=== PATIENT | female | born 1955 | race African-American/Black ===

== ENCOUNTER 2022-10-07 10:26 | Emergency (ER) | payer OTHER ==
[~2022-10-07] VITALS: Ht 167.6 cm; Wt 77.0 kg
[2022-10-07] MEDS ORDERED: MORPHINE SULFATE 4 MG/ML CPJ (NOT FOR IM USE) IV ONE (10:45)
[2022-10-07] MEDS ORDERED: ACETAMINOPHEN WITH CODEINE 300/30MG TABLET PO ONE (10:45)
[2022-10-07] MEDS ORDERED: KETAMINE HCL 50 MG/ML 10ML IV ONE (11:30)
[2022-10-07] MEDS ORDERED: PROPOFOL 200MG/20ML VIAL IV ONE (11:30)
[2022-10-07] MEDS ORDERED: T3 PO (11:42)
[2022-10-07] MEDS ORDERED: IBUP-2028 PO (11:42)
[2022-10-07 11:59] VITALS: O2SAT 100
[2022-10-07 13:47] VITALS: BP 156/82; PULSE 80; RESP 21; TEMP 98.3
== END 2022-10-07 13:47 | disposition home or self-care (01) ==
LOC: ER 10:40
DX: S82.301A Unspecified fracture of lower end of right tibia, initial encounter for closed fracture (principal); S82.831A Other fracture of upper and lower end of right fibula, initial encounter for closed fracture; Z79.899 Other long term (current) drug therapy; X50.1XXA Overexertion from prolonged static or awkward postures, initial encounter; Y93.89 Activity, other specified; Y92.89 Other specified places as the place of occurrence of the external cause; Y99.8 Other external cause status
CPT/HCPCS: 71045; 73590; 73600; 27788; 96374; 99285; J3490; J2704; J2270; 99284